=== PATIENT | female | born 1970 ===

== ENCOUNTER 2017-08-30 09:24 | Day surgery (SDC) | payer MEDICARE, MEDICAID ==
[~2017-08-30 09:24] MED LIST: Albuterol 0.083% 2.5 MG/3 ML Neb Soln NEB ONE; Bupivacaine 0.5% 30 ML SDV ONE; Dexamethasone 4 MG/ML 5 ML MDV ONE; Lactated Ringers 1,000 ML IV SCH; Lactated Ringers 1,000 ML ONE; Lidocaine 1% 4 ML ONE; Lidocaine 1%/Sod Bicarbonate in NS 8.4% 1 ML Syringe IDERM PRN; Midazolam 1 MG/ML 2 ML SDV ONE; Ondansetron 4 MG/2 ML SDV ONE; Propofol 200 MG/20 ML SDV ONE; Rocuronium 50 MG/5 ML Vial ONE; Sodium Chloride 0.9% 10 ML Syringe FLUSH PRN; ceFAZolin 1 GM Vial ONE; fentaNYL 250 MCG/5 ML SDV ONE
[2017-08-30] MEDS ORDERED: Albuterol 0.083% 2.5 MG/3 ML Neb Soln ONE (10:01)
[2017-08-30] MEDS ORDERED: Famotidine 20 MG/2 ML SDV ONE (10:09)
[2017-08-30] MEDS ORDERED: Midazolam 1 MG/ML 2 ML SDV ONE (10:10)
[2017-08-30] MEDS ORDERED: HYDROmorphone 0.5 MG/0.5 ML Syringe ONE ×2 (10:11→11:34)
[2017-08-30] MEDS ORDERED: Propofol 200 MG/20 ML SDV ONE ×2 (10:12)
[2017-08-30] MEDS ORDERED: Albuterol 0.083% 2.5 MG/3 ML Neb Soln NEB PRN (11:09)
[2017-08-30] MEDS ORDERED: Haloperidol Lactate 5 MG/ML SDV IVPUSH PRN (11:09)
[2017-08-30] MEDS ORDERED: fentaNYL 100 MCG/2 ML SDV IVPUSH PRN (11:09)
[2017-08-30] MEDS ORDERED: HYDROmorphone 0.5 MG/0.5 ML Syringe IVPUSH PRN (11:09)
[2017-08-30] MEDS ORDERED: diphenhydrAMINE 50 MG/ML SDV IVPUSH PRN (11:09)
--- NOTE | 2017-08-30 11:19 | PCM.PREANE ---
Preanesthetic Assessment - Anesthesia/Transfusion/Family Hx Anesthesia History: Prior Anesthesia Reaction Type of Anesthesia Reaction: Excessive Somnolence Other Type of Anesthesia Reaction Comment: Wakes up very scared. Family History of Anesthesia Reaction: No - Review of Systems General: Fatigue Pulmonary: No Symptoms Cardiovascular: No Symptoms Gastrointestinal: Abdominal Pain, Nausea Neurological: Pre-Existing Deficit, Tingling, Difficulty Walking, Gait Disturbance Other: Reports: Depression, Anxiety - Physical Assessment NPO Status Date: 08/30/17 NPO Status Time: 06:45 (coffee ) O2 Sat by Pulse Oximetry: 96 Respiratory Rate: 16 Vital Signs: Last Vital Signs Temp 36.9 C 08/30/17 09:30 Pulse 88 08/30/17 09:30 Resp 16 08/30/17 09:30 BP 102/84 08/30/17 09:30 Pulse Ox 96 08/30/17 09:30 Height: 1.73 m Weight: 61.235 kg ASA Class: 3 Mental Status: Alert & Oriented x3 Airway Class: Mallampati = 1 Dentition: Reports: Dentures Thyro-Mental Finger Breadths: 3 Mouth Opening Finger Breadths: 3 ROM/Head Extension: Full (Denies neck pain today. Has had neck pain in the past. ) Lungs: Clear to Auscultation, Normal Respiratory Effort, Other (Last cigarette this morning. ) Cardiovascular: Regular Rate, Regular Rhythm - Imaging/EKG Impressions: Indicative of an old [place]. Patient states she had chest pain 2 years ago. 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 Further EKG testing was done. No intervention necessary at this time. Dr. Elizabeth agrees okay to proceed with procedure. Kathy is very tearful. She has been dealing with a lot of pain. Chronic back pain. Has had surgery multiple times. She wakes up very slow and agitated. She is aware she may have to spend the night in the hospital. No further questions at this time. - Allergies Allergies/Adverse Reactions: Allergies Allergy/AdvReac Type Severity Reaction Status Date / Time azithromycin Allergy Cannot Verified 08/29/17 14:50 Remember ciprofloxacin [From Cipro] Allergy Cannot Verified 08/29/17 14:50 Remember clarithromycin [From Biaxin] Allergy Cannot Verified 08/29/17 14:50 Remember metronidazole [From Flagyl] Allergy Cannot Verified 08/29/17 14:50 Remember PreAnesthesia Questionnaire HEENT History: Reports: Allergic Rhinitis, Impaired Vision, Other (See Below) Other HEENT History: TMJ, wears glasses, has dentures Cardiovascular History: Reports: None Respiratory History: Reports: COPD Gastrointestinal History: Reports: Other (See Below) Other Gastrointestinal History: gastric ulcer Genitourinary History: Reports: Renal Calculus [employer]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[employer] MANAGER History: Reports: Other (See Below) Other OB/BYN History: ovarian cysts, pelvic pain, vaginal candidiasis, discharge Musculoskeletal History: Reports: Arthritis, Back Pain, Chronic, RA Neurological History: Reports: Other (See Below) Other Neuro History: nerve damage Psychiatric History: Reports: Addiction, Depression Endocrine/Metabolic History: Reports: None Hematologic History: Reports: Other (See Below) Other Hematologic History: bleeding disorder Immunologic History: Reports: None Oncologic (Cancer) History: Reports: None Dermatologic History: Reports: None - Past Surgical History Head Surgeries/Procedures: Reports: None HEENT Surgical History: Reports: Tonsillectomy Cardiovascular Surgical History: Reports: None Respiratory Surgical History: Reports: None GI Surgical History: Reports: Cholecystectomy Female Surgical History: Reports: Section, Hysterectomy Endocrine Surgical History: Reports: None Neurological Surgical History: Reports: Other (See Below) Other Neurological Surgeries/Procedures: 13 back surgeries Musculoskeletal Surgical History: Reports: Knee Replacement Oncologic Surgical History: Reports: None Dermatological Surgical History: Reports: None - SUBSTANCE USE Smoking Status *Q: Current Every Day Smoker Recreational Drug Use History: No - HOME MEDS Home Medications: Home Meds Albuterol [Proventil HFA] 1 - 2 puff INH Q4H PRN 08/29/17 [History] Budesonide/Formoterol Fumarate [Symbicort 160-4.5 Mcg Inhaler] 1 puff INH BID [History] Cholecalciferol (Vitamin D3) [Vitamin D3] 2,000 unit PO DAILY 08/29/17 [History] Gabapentin [Gralise] 600 mg PO TID 08/29/17 [History] Ketoprofen, Micronized [Frotek] 1 applic TOP Q6H PRN 08/29/17 [History] Lidocaine 5% [Lidoderm 5%] 1 patch TOP Q12H PRN 08/29/17 [History] Ondansetron HCl [Zofran] 4 mg PO Q8H PRN 08/29/17 [History] - CURRENT (IN HOUSE) MEDS Current Meds: Current Medications Albuterol (Proventil Neb Soln) 2.5 mg NEB ONETIME PRN PRN Reason: Shortness of Breath Diphenhydramine HCl (Benadryl) 25 mg IVPUSH Q6H PRN PRN Reason: Pruritis Fentanyl (Sublimaze) 50 mcg IVPUSH Q5M PRN PRN Reason: Pain Haloperidol Lactate (Haldol) 1 mg IVPUSH ONETIME ONE Stop: 08/30/17 11:10 Hydromorphone HCl (Dilaudid) 0.5 mg IV ASDIRECTED PRN PRN Reason: Severe Pain Lactated Ringer's (Ringers, Lactated) 1,000 mls @ 125 mls/hr IV ASDIRECTED QUIANA Last Admin: 08/30/17 09:45 Dose: 125 mls/hr Lidocaine/Sodium Bicarbonate (Buffered Lidocaine 1% In Ns 8.4%) 0.25 ml IDERM ONETIME PRN PRN Reason: Prior to IV Start Last Admin: 08/30/17 09:44 Dose: 0.25 ml Sodium Chloride (Saline Flush) 10 ml FLUSH ASDIRECTED PRN PRN Reason: Keep Vein Open Discontinued Medications Albuterol (Proventil Neb Soln) 2.5 mg NEB ONETIME ONE Stop: 08/30/17 00:02 Last Admin: 08/30/17 10:03 Dose: 2.5 mg Albuterol (Proventil Neb Soln) Confirm Administered Dose 2.5 mg .ROUTE .STK-MED ONE Stop: 08/30/17 10:02 Last Admin: 08/30/17 10:04 Dose: Not Given Bupivacaine HCl (Marcaine 0.5%) Confirm Administered Dose 30 ml .ROUTE .STK-MED ONE Stop: 08/30/17 09:18 Cefazolin Sodium (Ancef) Confirm Administered Dose 2 gm .ROUTE .STK-MED ONE Stop: 08/30/17 08:41 Dexamethasone (Dexamethasone) Confirm Administered Dose 20 mg .ROUTE .STK-MED ONE Stop: 08/30/17 08:42 Famotidine (Pepcid) Confirm Administered Dose 20 mg .ROUTE .STK-MED ONE Stop: 08/30/17 10:10 Fentanyl (Sublimaze) Confirm Administered Dose 250 mcg .ROUTE .STK-MED ONE Stop: 08/30/17 08:41 Hydromorphone HCl (Dilaudid) Confirm Administered Dose 0.5 mg .ROUTE .[facility] ONE Stop: 08/30/17 10:12 Lactated Ringer's (Ringers, Lactated) Confirm Administered Dose 1,000 mls @ as directed .ROUTE .[facility]-MED ONE Stop: 08/30/17 08:41 Lidocaine HCl (Xylocaine-Mpf 1%) Confirm Administered Dose 4 mls @ as directed .ROUTE .[facility] ONE Stop: 08/30/17 08:42 Midazolam HCl (Versed 1 Mg/Ml) Confirm Administered Dose 2 mg .ROUTE .[facility] ONE Stop: 08/30/17 08:41 Midazolam HCl (Versed 1 Mg/Ml) Confirm Administered Dose 2 mg .ROUTE .[facility] ONE Stop: 08/30/17 10:11 Ondansetron HCl (Zofran) Confirm Administered Dose 4 mg .ROUTE .[facility] ONE Stop: 08/30/17 08:41 Propofol (Diprivan 20 Ml) Confirm Administered Dose 400 mg .ROUTE .[facility] ONE Stop: 08/30/17 08:12 Propofol (Diprivan 20 Ml) Confirm Administered Dose 200 mg .ROUTE .[facility] ONE Stop: 08/30/17 10:13 Propofol (Diprivan 20 Ml) Confirm Administered Dose 200 mg .ROUTE .[facility] ONE Stop: 08/30/17 10:13 Rocuronium [place] (Zemuron) Confirm Administered Dose 50 mg .ROUTE .[facility] ONE Stop: 08/30/17 08:41
[2017-08-30] MEDS ORDERED: Glycopyrrolate 0.2 MG/ML SDV ONE (11:26)
[2017-08-30] MEDS ORDERED: Neostigmine Methylsulfate 10 MG/10 ML MDV ONE (11:26)
[2017-08-30] MEDS ORDERED: Ketorolac 30 MG/ML SDV ONE (11:40)
--- NOTE | 2017-08-30 11:41 | PCM.OPNOTE ---
- General Post-Op/Procedure Note Date of Surgery/Procedure: 08/30/17 Operative Procedure(s): Laparoscopic left salpingo-oophorectomy, right salpingectomy and right ovarian cystectomy Findings: Overall normal-appearing bowel, normal-appearing appendix, surgically absent uterus, right tube and ovary overall normal in appearance with several cysts within the ovary, normal-appearing left tube and enlarged left ovary with cyst present, adhesions of descending colon to left lateral abdominal sidewall Pre Op Diagnosis: Female pelvic pain, bilateral ovarian cysts Post-Op Diagnosis: Same Anesthesia Technique: General ET Tube Primary Surgeon: Estuardo Stafford Anesthesia Provider: Irina Navarro Salesperson Driver: Randall Holcomb Reason Salesperson Driver Was Necessary: Laparoscopic surgical skills and patient safety Role of Salesperson Driver: Salesperson Driver with laparoscopic portions of the procedure in manipulation of tissue and use of laparoscopic instruments Pathology: Right salpinx with right ovarian cyst wall, left salpinx and ovary Fluid Replacement, Intraop: 1,600 Output, Urine Amount: 20 EBL in mLs: 10 Complications: None Condition: Good Free Text/Narrative:: The patient was seen in the preoperative holding area and risks, benefits, indications, and alternatives of the procedure were reviewed with the patient and she desired to proceed with a laparoscopic left salpingo-oophorectomy, right salpingectomy, right ovarian cystectomy, possible right salpingo- oophorectomy. Consents were reviewed. The patient was taken back to the OR and given general anesthesia with an endotracheal tube which was placed without difficulty. She was placed in dorsal supine position. A Masters catheter was placed without difficulty. She was prepped and draped in normal sterile fashion. Attention was then turned to her umbilicus, which was injected with 0.5% Marcaine infraumbilically. A 5 mm incision was made with the scalpel. A Veress needle was then inserted through the incision and gas was turned on, with an opening pressure of 6 mmHg. The abdomen was insufflated until an intra-abdominal pressure of 15 mmHg was reached. A 5 mm trocar was then inserted under direct visualization with a laparoscope. Attention was then turned to the suprapubic area and the skin was injected with local anesthetic. A skin incision was made using a scalpel. A 12 mm trocar was then inserted under direct visualization with laparoscope. Attention was then turned to the patient's right lower quadrant where an avascular space approximately custodial between the ASIS and the umbilicus was identified. Local anesthetic was injected and a 5 mm incision was made with a scalpel. A 5 mm trocar was then inserted under direct visualization of the laparoscope. Attention was then turned to the left lower quadrant, where again an avascular portion of the abdominal wall was identified approximately custodial between the ASIS and the umbilicus. Local anesthetic was injected and a scalpel was used to make a 5 mm incision. A 5 mm trocar was inserted under direct visualization with the laparoscope. Attention was then turned to the pelvis where the intestines were overall normal in appearance and the appendix was visualized and appeared normal. The uterus was surgically absent. The right tube and ovary were visualized and were overall normal appearance with multiple cysts within the right ovary. The left ovary was inspected and noted to have normal-appearing tube and cyst present within the ovary. The right tubal segment was then grasped using an atraumatic grasper and the tube was transected from the ovary using LigaSure vessel sealing device. The tubal segment was then removed through the 10 mm port and sent for pathology. The ovarian tissue was then incised using the LigaSure device and the ovarian cysts were attempted to be shelled out from within the ovarian tissue. During the removal of the ovarian cyst the cyst ruptured and the cyst wall was then removed as much as possible using [place] grasper. The ovarian tissue was hemostatic at the end of removal of the ovarian cyst wall and the procedure on this ovary. The ovary was allowed to go back into the pelvis. Attention was then turned to the left lower pelvis and the left tube and ovary were again identified. The ovarian pedicle was then transected using the LigaSure vessel sealing device as well as removal along the remaining pedicle for the fallopian tube. This was placed in a Endo Catch bag and removed through the 12 mm port. Attention was then turned to the surgical bed where there is a small amount of bleeding that was cauterized using the LigaSure vessel sealing device. There was an adhesion from the descending colon to the left lateral abdominal sidewall and these adhesions were taken down using the LigaSure device. The transected portion was hemostatic at the end of the case. The ovarian pedicles were then inspected and noted to be hemostatic. The right ovary surgical bed was hemostatic at the end of case. The case was completed at this time. The suprapubic port was removed and the fascia was closed using a Catr[place] needle with 0 Vicryl suture. The remaining trochars were then removed under direct visualization and no bleeding was noted after removal of the trochars. The gas was then evacuated from the peritoneum. The 5 mm port sites were closed using 4-0 Monocryl suture with interrupted suture and Dermabond. The 12 mm suprapubic port incision was closed using running subcuticular stitch with 4-0 Monocryl and Dermabond was placed over the top. The Masters catheter was discontinued at this time. The patient was awoken from general anesthesia and taken to the PACU for recovery in stable condition. She will be discharged to home once she is able to meet all postoperative milestones including tolerating small amount of oral intake and liquids, ambulate without difficulty, have her pain controlled with oral medications and able to void without difficulty. She will follow-up in the clinic in 2-3 weeks or earlier as needed. Sponge, lap, needle, and instrument counts were correct x 2.
--- NOTE | 2017-08-30 11:54 | PCM.POSTAN ---
POST ANESTHESIA ASSESSMENT - MENTAL STATUS Mental Status: Somnolent - VITAL SIGNS Pulse Rate: 67 SaO2: 100 Resp Rate: 11 Blood Pressure: 100/76 Temperature: 36.6 C - RESPIRATORY Respiratory Status: Respiratory Rate WNL, Airway Patent, O2 Saturation Stable, Supplemental Oxygen - CARDIOVASCULAR CV Status: Pulse Rate WNL, Blood Pressure Stable - GASTROINTESTINAL GI Status: No Symptoms - PAIN Pain Score: 0 - POST OP HYDRATION Hydration Status: Adequate & Stable
[2017-08-30] MEDS: Acetaminophen/oxyCODONE 325-5 MG Tab PO PRN ×2 (13:10→13:40)
--- NOTE | 2017-08-30 14:32 | PCM48HPAN ---
Post Anesthesia Note - EVALUATION WITHIN 48HRS OF ANESTHETIC Vital Signs in Normal Range: Yes Patient Participated in Evaluation: Yes Respiratory Function Stable: Yes Airway Patent: Yes Cardiovascular Function Stable: Yes Hydration Status Stable: Yes Pain Control Satisfactory: Yes Nausea and Vomiting Control Satisfactory: Yes Mental Status Recovered: Yes
== END 2017-08-30 15:30 | disposition home or self-care (01) ==
LOC: JD.SDS 09:24
PROVIDERS: ATTEND Obstetrics & Gynecology
DX: N70.11 Chronic salpingitis (principal); L72.0 Epidermal cyst; J44.9 Chronic obstructive pulmonary disease, unspecified; F32.9 Major depressive disorder, single episode, unspecified; Z88.1 Allergy status to other antibiotic agents; Z88.8 Allergy status to other drugs, medicaments and biological substances; F17.210 Nicotine dependence, cigarettes, uncomplicated; Z79.899 Other long term (current) drug therapy
CPT/HCPCS: 58661; 58662; 94640; A9270; J0690; J1100; J1170; J1885; J2250; J2405; J2710; J3010; J3490; J7120; 00840; 88305; J2001; J2704

== ENCOUNTER 2017-10-01 19:48 | Emergency (ER) | payer MEDICARE, MEDICAID ==
[2017-10-01] MEDS ORDERED: HYDROmorphone 0.5 MG/0.5 ML SYRINGE IVPUSH ONE (20:26)
[2017-10-01] MEDS ORDERED: Ondansetron 4 MG/2 ML SDV IVPUSH ONE (20:26)
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
[2017-10-01] MEDS ORDERED: Dextrose 5%-0.9% NaCl 1,000 ML IV SCH (20:30)
[2017-10-01] MEDS ORDERED: Albuterol/Ipratropium 3.0-0.5 MG/3 ML Neb Soln NEB ONE (20:34)
[2017-10-01] MEDS ORDERED: Albuterol 6.7 GM Inhaler INH ONE ×2 (21:41→21:44)
--- NOTE | 2017-10-02 07:55 | CR ---
Chest: Two views of the chest were obtained. Comparison: No prior chest x-ray. Heart size and mediastinum are normal. Mild scoliosis is present within the spine. No discrete acute abnormality is appreciated within the osseous structures. Lungs are clear. No pneumothorax is seen. Surgical clips are seen from prior cholecystectomy. Impression: 1. Incidental findings. Nothing acute is seen. Diagnostic code #2
--- NOTE | 2017-10-02 07:55 | CT ---
CT cervical spine Technique: Multiple axial sections through the cervical spine were obtained. Reconstructed coronal and sagittal images were reviewed. Findings: Degenerative change is noted between the dens and anterior arch of C2. Disc spaces and vertebral body heights are maintained. Scattered degenerative apophyseal change is seen which is worse on the left side. Vertebral bodies and posterior arches are intact with no fracture being seen. Moderate left-sided neural foraminal stenosis is noted at C3-C4. Other neural foramina are patent. No central canal stenosis is seen. No abnormal subluxation is seen. Impression: 1. Degenerative change as noted above. Nothing acute is appreciated on CT study of the cervical spine. Diagnostic code #2 Agree with preliminary report issued by [employer] (preliminary [facility] report dictated on 10/01/17, 10:42 PM Central Time)
--- NOTE | 2017-10-02 07:55 | CT ---
Head CT Technique: Multiple axial sections through the brain were obtained. Intravenous contrast was not utilized. Comparison: No previous intracranial imaging. Findings: Ventricles along with basal cisterns and sulci over the convexities are within normal limits for the patient's age. No abnormal parenchymal densities are seen. No evidence of intracranial hemorrhage. No midline shift or mass effect is seen. Bone window settings were reviewed which show the visualized sinuses to appear clear. No acute calvarial abnormality is seen. Impression: 1. Nothing acute is identified on noncontrast head CT exam. Diagnostic code #1 Agree with preliminary report issued by [employer] (preliminary [facility] report dictated on 10/01/17, 10:32 PM Central Time)
--- NOTE | 2017-10-02 07:55 | CT ---
CT lumbar spine Technique: Multiple axial sections were obtained from the top of T12 inferiorly through the L5-S1 disc. Reconstructed sagittal and coronal images were reviewed. Comparison: No prior lumbar spine imaging. Findings: Degenerative change is seen within the apophyseal joints at L4-L5. Transpedicle screws are identified within L5 and S1 as well as anterior plate and screws. Posterior laminectomy seen at L5-S1. No fracture is seen. Two orthopedic stabilization screws are seen across the left sacroiliac joint. No disc herniation is seen. No central canal stenosis or neural foraminal stenosis is seen. Impression: 1. Previous surgery at L5-S1. Two fixation screws across the left sacroiliac joint also noted. 2. Degenerative change within the apophyseal joints at L4-L5. 3. Nothing acute is seen. Diagnostic code #2 Agree with preliminary report issued by [employer] (preliminary [facility] report dictated on 10/01/17, 10:35 PM Central Time)
== END 2017-10-01 22:15 | disposition home or self-care (01) ==
LOC: JD.ED 19:48
DX: S00.03XA Contusion of scalp, initial encounter (principal); S20.212A Contusion of left front wall of thorax, initial encounter; J44.9 Chronic obstructive pulmonary disease, unspecified; F32.9 Major depressive disorder, single episode, unspecified; F17.210 Nicotine dependence, cigarettes, uncomplicated; Z79.899 Other long term (current) drug therapy; Z88.1 Allergy status to other antibiotic agents; Y04.8XXA Assault by other bodily force, initial encounter; Y07.01 Husband, perpetrator of maltreatment and neglect; Z87.442 Personal history of urinary calculi; Z98.890 Other specified postprocedural states
CPT/HCPCS: 36415; 70450; 71046; 72125; 72131; 80053; 81001; 85007; 85027; 94640; 96361; 96374; 96375; 99285; A9270; J1170; J2405; J7042